=== PATIENT | female | born 1995 | race Caucasian/White ===

== ENCOUNTER 2021-08-10 14:43 | Emergency (ER) | payer SELFPAY ==
[2021-08-10 14:53] VITALS: BP 134/79; PULSE 118; RESP 20; TEMP 37.6; O2SAT 100
--- NOTE | 2021-08-10 15:01 | ED.SKABFB ---
HPI - Skin/Abscess/Foreign Bdy General Chief complaint: Skin/Abscess/Foreign Body Stated complaint: Possible Cellulitis Time Seen by Provider: 08/10/21 15:01 Source: patient and RN notes reviewed History of Present Illness HPI narrative: Patient is a 26-year-old female who presents the urgent care with complaints of an abscess to the buttocks. Patient states that it has been there for approximately 2 to 3 days and has increased in pain and swelling. Patient denies of any fever, nausea, vomiting. Patient states that she has been taking ibuprofen for the pain. No other acute complaints. No acute distress noted. Patient aware of the plan of care. Some parts of this dictation were generated by voice recognition software and may contain typographical and/or grammatical inaccuracies. Related Data Allergies Allergy/AdvReac Type Severity Reaction Status Date / Time No Known Allergies Allergy Verified 08/10/21 15:05 Review of Systems Review of Systems: CONSTITUTIONAL: Denies fever, chills, or sweats. EYES: Denies visual changes, redness, or discharge. ENT: Denies rhinorrhea, congestion, sore throat, or otalgia. CARDIOVASCULAR: Denies chest pain, palpitations, or edema. RESPIRATORY: Denies cough or dyspnea. GASTROINTESTINAL: Denies abdominal pain, nausea, vomiting, or diarrhea. GENITOURINARY: Denies dysuria or hematuria. SKIN: Reports of a painful abscess to the left buttocks MUSCULOSKELETAL: Denies back pain, joint pain, or myalgia. NEUROLOGIC: Denies headache, numbness, or weakness. All other systems reviewed are negative, except as documented in HPI. PMFSH Comments At the time of my signature, I reviewed and agree with the nursing past medical, surgical, social, and family history. There is no relevant family history pertinent to the patient complaint. Exam Narrative: GENERAL: This is a well-nourished, well-developed patient, in no apparent distress. HEAD: normocephalic, atraumatic. EYES: PERRL. Sclera clear/white. Vision is grossly intact. EARS: External ears normal NOSE: External nose normal with no obvious nasal discharge, nares without redness, no rhinorrhea. THROAT: Mucous membranes moist NECK: Neck supple CARDIOVASCULAR: Regular rate and rhythm without murmurs, gallops, or rubs. RESPIRATORY: Clear to auscultation. Breath sounds equal bilaterally. No wheezes, rales, or rhonchi. SKIN: 4 x 4cm firm erythemic abscess to the left gluteal fold with surrounding 5 x 5 cm area of erythema NEURO: awake, alert, and oriented to person, place and time. There were no obvious focal neurologic abnormalities. EXTREMITIES: No clubbing, cyanosis, or edema. Course Vital Signs Vital signs: Vital Signs Temperature 99.7 F H 08/10/21 14:53 Pulse Rate 118 H 08/10/21 14:53 Respiratory Rate 20 08/10/21 14:53 Blood Pressure 134/79 08/10/21 14:53 Pulse Oximetry 100 08/10/21 14:53 Temperature 99.7 F H 08/10/21 14:53 Pulse Rate 118 H 08/10/21 14:53 Respiratory Rate 20 08/10/21 14:53 Blood Pressure 134/79 08/10/21 14:53 Pulse Oximetry 100 08/10/21 14:53 Reviewed MDM - Skin/Abscess/Foreign Bdy MDM Narrative Medical decision making narrative: Advised the patient to complete oral antibiotic regimen as prescribed. Make sure to eat and drink with the medication to decrease nausea. Use prescription cream to the affected area. Make sure to wipe the area well after bowel movement. May use sitz bath or Epson salt bath for comfort. Use Tylenol/ibuprofen as needed for pain. Use a warm compress for comfort. If you develop any increase in symptoms associated with increased swelling, nausea, vomiting, fever?go to the emergency room. Follow-up with your PCP within 2 to 5 days or for worsening symptoms or failure to improve. Discharge Plan Discharge Clinical Impression: Abscess of skin or subcutaneous tissue Qualifiers: Site of cutaneous abscess: buttock Qualified Code(s): L02.31 - Cutaneous abscess of buttock Adrianne
== END 2021-08-10 15:10 | disposition home or self-care (01) ==
PROVIDERS: Emergency Provider Nurse Practitioner Family
DX: L02.31 Cutaneous abscess of buttock (principal)
CPT/HCPCS: 99213; G0463